=== PATIENT | female | born 2000 | race Hispanic/Latino ===

== ENCOUNTER 2021-06-23 22:53 | Emergency (ER) | payer OTHER ==
[~2021-06-23] VITALS: Ht 160 cm; Wt 86.2 kg
[2021-06-23] MEDS ORDERED: PREPLUS CA-FE1 EACH PO (23:13)
== END 2021-06-24 02:05 | disposition home or self-care (01) ==
LOC: ED 22:53
DX: O21.9 Vomiting of pregnancy, unspecified (principal); Z3A.09 9 weeks gestation of pregnancy; Z79.899 Other long term (current) drug therapy
CPT/HCPCS: 80053; 81001; 83735; 84703; 85025; 96374; 96375; 99284-25; J1200; J2405; J2550; J7030

== ENCOUNTER 2021-10-22 10:00 | Emergency (ER) | payer OTHER ==
[~2021-10-22] VITALS: Ht 160 cm; Wt 88.5 kg
[~2021-10-22 10:00] MED LIST: PREPLUS CA-FE1 EACH PO
== END 2021-10-22 12:04 | disposition home or self-care (01) ==
LOC: ED 10:00
DX: O98.512 Other viral diseases complicating pregnancy, second trimester (principal); U07.1 COVID-19; Z3A.27 27 weeks gestation of pregnancy; Z79.899 Other long term (current) drug therapy
CPT/HCPCS: 99284; C9803; U0003

== ENCOUNTER 2022-01-14 17:09 | Inpatient (IN) | payer OTHER ==
[~2022-01-14] VITALS: Ht 161.3 cm; Wt 89.8 kg
--- NOTE | 2022-01-14 23:05 | PR ---
[facility] [address] [facility] [place], [place] [address] Signed Progress Notes IP Datetime Report Generated by CPN: 01/14/2022 23:04 PROGRESS NOTES: [id number] Impression: Reassuring Heart Rate Plan: Continue Present Management; Augmentation VITAL SIGNS: [id number] EXAM: [id number] Dilatation: 2.0 Effacement: 75 Station: -3 Contractions: q2-5 min MEMBRANES: [id number] Nitrazine: Positive Amniotic Fluid Color: Clear Comments: Pt comfortable with epidural Minimal change since starting pitocin for augmentation of labor - continue, may consider internal monitors FETUS A: [id number] FHR Baseline: 135 Variability: Moderate 6-25bpm Accelerations: 15X15 FHR Category: Category I Presentation: Vertex Comments on Fetus A: No evidence of acidemia FETUS B: [id number] Signing Physician: Eros Treadwell DO Copies: ~ *Electronically Signed* 01/14/22 2304 EROS TREADWELL DO PATIENT NAME: MISTYNURIA VARGASE PROGRESS NOTE DATE OF : 01 PHYSICIAN: EROS TREADWELL DO [facility] #: [id number] REPORT IS CONFIDENTIAL AND NOT TO BE RELEASED WITHOUT AUTHORIZATION
--- NOTE | 2022-01-15 00:12 | PR ---
[facility] [address] [facility] [place], [place] [address] Signed Progress Notes IP Datetime Report Generated by CPN: 01/15/2022 00:12 PROGRESS NOTES: [id number] Impression: Normal Progression of Labor Procedures: Intrauterine Pressure Catheter; Scalp Electrode Plan: Continue Present Management; Augmentation VITAL SIGNS: [id number] EXAM: [id number] Dilatation: 2.0 Effacement: 75 Station: -2 Contractions: q2-5 min MEMBRANES: [id number] Nitrazine: Positive Membranes Status: Ruptured Amniotic Fluid Color: Clear Comments: Pt very comfortable with epidural. Risks, benefits, alternatives to IUPC/ FSE reviewed with pt. Internal monitors placed without difficulty with patient's consent. -Continue augmentation with pitocin FETUS A: [id number] FHR Baseline: 135 Variability: Moderate 6-25bpm Accelerations: 15X15 FHR Category: Category I Presentation: Vertex Comments on Fetus A: No evidence of acidemia FETUS B: [id number] Signing Physician: Eros Treadwell DO Copies: ~ *Electronically Signed* 01/15/22 001 EROS TREADWELL DO PATIENT NAME: NURIA JAY PROGRESS NOTE DATE OF : 01 PHYSICIAN: EROS TREADWELL DO RPT #: [id number] REPORT IS CONFIDENTIAL AND NOT TO BE RELEASED WITHOUT AUTHORIZATION
--- NOTE | 2022-01-15 01:46 | PR ---
[facility] [address] [place], [place] [address] Signed Progress Notes IP Datetime Report Generated by CPTin: 01/15/2022 01:46 PROGRESS NOTES: [id number] Impression: Arrest of Dilatation/Descent; Non-reassuring Heart Rate Procedures: Intrauterine Pressure Catheter; Scalp Electrode Plan: Continue Present Management; Augmentation VITAL SIGNS: [id number] EXAM: [id number] Dilatation: 3.0 Effacement: 80 Station: -3 Contractions: q2-5 min MEMBRANES: [id number] Nitrazine: Positive Membranes Status: Ruptured Amniotic Fluid Color: Clear Comments: Pitocin started 2029, cervix has progressed from 1 to 3cm. However, FHR is no longer reassuring and variable decelerations are persisting despite repeated position changes. Cervix is still far posterior. Pt strongly desired trying throne position again. Agreed to try, discussed that I am concerned about baby's intolerance to labor and possible need for delivery due to lack of cervical change in conjunction with category 2 strip. Pt strongly desires to continue toward vaginal delivery at this time, will reconsider after trying throne position. FETUS A: [id number] FHR Baseline: 135 Variability: Moderate 6-25bpm Accelerations: 15X15 FHR Category: Category I Presentation: Vertex Comments on Fetus A: No evidence of acidemia FETUS B: [id number] Signing Physician: Eros Treadwell DO Copies: ~ *Electronically Signed* 01/15/22 0146 EROS TREADWELL DO PATIENT NAME: NURIA JAY PROGRESS NOTE DATE OF : 01 PHYSICIAN: EROS TREADWELL DO RPT #: [id number] REPORT IS CONFIDENTIAL AND NOT TO BE RELEASED WITHOUT AUTHORIZATION
--- NOTE | 2022-01-15 02:28 | PR ---
[facility] [address] [place], [place] [address] Signed Progress Notes IP Datetime Report Generated by DEBORAH: 01/15/2022 02:28 PROGRESS NOTES: [id number] Impression: Arrest of Dilatation/Descent; Non-reassuring Heart Rate Procedures: Intrauterine Pressure Catheter; Scalp Electrode Plan: Deliver- Section Informed Consent Obtain: Section Delivery; Risks, Benefits and Alternatives Discussed VITAL SIGNS: [id number] EXAM: [id number] Dilatation: 3.0 Effacement: 80 Station: -3 Contractions: q2-5 min MEMBRANES: [id number] Nitrazine: Positive Membranes Status: Ruptured Amniotic Fluid Color: Clear Comments: Reviewed labor course thus far with pt, FOB, and pt's mother. Reviewed attempts to augment and stalled progression of cervical dilation and intolerance to labor. Risks, benefits, and alternatives including risks of bleeding/ infection/ repeat or referral for tolac, increased pain with plan for pain management discussed. Reviewed benefits of delivery prior to further stress to baby, and alternative of continuing labor attempts which I do NOT recommend at this point. Pt elects to proceed with PLTCS for nonreassuring heart tones/ intolerance of labor remote from delivery. Routine orders including Ancef 2g + Azithromycin 500mg placed, traffic maintenance supervisor and assist directly notified by phone. FETUS A: [id number] FHR Baseline: 135 Variability: Moderate 6-25bpm Accelerations: 15X15 FHR Category: Category I Presentation: Vertex Comments on Fetus A: No evidence of acidemia FETUS B: [id number] Signing Physician: Eros Treadwell DO *Electronically Signed* 01/15/22227 EROS TREADWELL DO PATIENT NAME: NURIA JAY PROGRESS NOTE DATE OF : 01 PHYSICIAN: EROS TREADWELL DO RPT #: [id number] REPORT IS CONFIDENTIAL AND NOT TO BE RELEASED WITHOUT AUTHORIZATION [address] [address] Signed Copies: ~ *Electronically Signed* 01/15/22227 EROS TREADWELL DO PATIENT NAME: NURIA JAY PROGRESS NOTE DATE OF : 01 PHYSICIAN: EROS TREADWELL DO RPT #: [id number] REPORT IS CONFIDENTIAL AND NOT TO BE RELEASED WITHOUT AUTHORIZATION
--- NOTE | 2022-01-15 04:17 | NUR ---
01/15/22 0417 Sabina Carr 0352 PATIENT ARRIVES TO PACU AWAKE BUT DROWSY. DENIES PAIN OR NAUSEA. RESTING WITH EYES CLOSED WHEN NOT STIMULATED. FAMILY AT BEDSIDE. BABY WITH FBC RN AT BEDSIDE. 0400 PATIENT STILL RESTING QUIETLY WITH EYES CLOSED. FBC RN WITH BABY TO RIGHT BREAST. RESP EVEN AND UNLABORED, ROOM AIR SATS 100%. 0410 PATIENT C/O NAUSEA, DRY HEAVING. MARYJO SEMICONDUCTOR PROCESSING TECHNICIAN STILL AT BEDSIDE. PATIENT ALSO CONTINUES TO BE HYPOTENSIVE. MARYJO SEMICONDUCTOR PROCESSING TECHNICIAN WILL MEDICATE FOR BP. 0415 PATIENT RESTING WITH EYES CLOSED. RESP EVEN AND UNLABORED, ROOM AIR SATS >97%. BABY WITH FBC RN BREAST FEEDING TO LEFT BREAST. FAMILY STILL AT BEDSIDE. PATIENT DENIES PAIN OR NAUSEA.
--- NOTE | 2022-01-16 09:12 | PR ---
[facility] [address] [place], [place] [address] Signed PP Progress Notes Datetime Report Generated by CPN: 01/16/2022 09:12 SUBJECTIVE: [id number] Pain: Within Normal Limits Nausea/Vomiting: Denies Flatus: Yes Bowel Movement: No Vital Signs: [id number] Vital Signs: Reviewed; Within Normal Limits EXAM: Ongoing Cardiovascular: Normal Respiratory: Normal Abdomen/Uterus: Normal Breasts: Normal Extremities: Normal Incision: Normal Progress: Normal Exam Comments: NAD, lying in bed RRR No dyspnea/ retractions Abd SNTND, FFBU Ext: 1+ BLLE, neg Josiah's BL IMPRESSION/PLAN/PROCEDURES: [id number] Impression: Normal Progression Plan: Continue Present Management Procedures: None Progress Notes: POD#1 s/p PLTCS for nonreassuring status -Pt seen and examined as above -Progressing well postop, Hgb 8 this am, discussed starting oral iron -Dizziness initially with first attempt at ambulating, no issue with further attempts -Awaiting spontaneous void Anticipate DC to home tomorrow vs Friday Continue routine postop care Signing Physician: Eros Treadwell DO Copies: *Electronically Signed* 01/16/22911 EROS TREADWELL DO PATIENT NAME: NURIA JAY PROGRESS NOTE DATE OF : 01 PHYSICIAN: EROS TREADWELL DO RPT #: [id number] REPORT IS CONFIDENTIAL AND NOT TO BE RELEASED WITHOUT AUTHORIZATION [facility] [address] [place] [address], [place] [address] Signed ~ *Electronically Signed* 01/16/22911 EROS TREADWELL DO PATIENT NAME: NURIA JAY PROGRESS NOTE DATE OF : 01 PHYSICIAN: EROS TREADWELL DO RPT #: [id number] REPORT IS CONFIDENTIAL AND NOT TO BE RELEASED WITHOUT AUTHORIZATION
--- NOTE | 2022-01-17 11:56 | PR ---
[facility] [address] [place], [place] [address] Signed PP Progress Notes Datetime Report Generated by CPTin: 01/17/2022 11:56 SUBJECTIVE: [id number] Pain: Within Normal Limits Nausea/Vomiting: Denies Flatus: Yes Bowel Movement: Yes Vital Signs: [id number] Vital Signs: Reviewed; Within Normal Limits EXAM: Ongoing Cardiovascular: Normal Respiratory: Normal Abdomen/Uterus: Normal Lochia: Normal Vulva/Perineum: Normal Breasts: Normal Extremities: Normal Incision: Normal Progress: Normal Exam Comments: NAD, sitting in bed RRR No dyspnea/ retractions Abd SNTND, FFBU Incision: c/d/i Ext: trace edema BL, neg Josiah's IMPRESSION/PLAN/PROCEDURES: [id number] Impression: Normal Progression Plan: Continue Present Management Procedures: None Progress Notes: POD#2 s/p PLTCS for NRFHT remote from delivery -pt seen and examined, as above, normal findings -considering DC to home today or tomorrow -ambulating, voiding, tolerating regular diet, +BM, tolerating oral iron -pain well-controlled on orals - well Anticipate DC to home today vs tomorrow Staple removal prior to discharge *Electronically Signed* 01/17/22 EROS GONZALEZ DO PATIENT NAME: NURIA JAY PROGRESS NOTE DATE OF : 01 PHYSICIAN: EROS TREADWELL DO RPT #: [id number] REPORT IS CONFIDENTIAL AND NOT TO BE RELEASED WITHOUT AUTHORIZATION [facility] [address] [place], [place] [address] Signed Signing Physician: Eros Treadwell DO Copies: ~ *Electronically Signed* 01/17/22 1156 EROS TREADWELL DO PATIENT NAME: NURIA JAY PROGRESS NOTE DATE OF : 01 PHYSICIAN: EROS TREADWELL DO RPT #: [id number] REPORT IS CONFIDENTIAL AND NOT TO BE RELEASED WITHOUT AUTHORIZATION
--- NOTE | 2022-01-17 15:56 | PATH ---
[facility] [address] [place], [place] [address] Signed SPECIMEN(S): A PLACENTA SPECIMEN SOURCE: A. PLACENTA CLINICAL HISTORY: NRFHT, short cord. G1, P1 FINAL PATHOLOGIC DIAGNOSIS: Placenta: - Martins placenta, 489 grams, see comment. - Umbilical cord: Short umbilical cord (12.5 cm in length). - membranes: Minimal focal acute chorionitis (maternal inflammatory response stage 1, grade 1). 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 COMMENT: The gestational age was not provided, therefore the appropriateness of placental weight cannot be determined. NAL:cml:C2NR MICROSCOPIC EXAMINATION: Histologic sections of all submitted blocks are examined by light microscopy. These findings, together with the gross examination, support the pathologic diagnosis. GROSS DESCRIPTION: The specimen, labeled "[place], placenta as per the requisition," is received fresh and placed in formalin and consists of martins discoid placenta with the following parameters: Umbilical cord: Insertion eccentric, 3.1 cm from the disc margin, measurement 12.5 cm in length by 1.0 cm in diameter; trivascular. Cord coiling index (per 10 cm): 4. Lesions: Not grossly identified. Membranes: Insertion site: Marginal, vera-pink and translucent, rupture site cannot be determined. Intact. Other: Not grossly identified. Chorionic Plate: Normal radiating vascular pattern, blue-purple and shiny. Lesions: Not grossly identified. Other: Not grossly identified. Maternal Surface: Normal cotyledons, intact. Lesions: Not grossly identified. Measurement: 17.1 x 15.2 x 2.2 cm. Weight (trimmed): 489 g PATIENT NAME: NURIA JAY PATHOLOGY DATE OF : 01 REPORT #: [id number] PHYSICIAN: [facility] PCP: EROS QUINTERO DO REPORT IS CONFIDENTIAL AND NOT TO BE RELEASED WITHOUT AUTHORIZATION [facility] [address] [place], [place] [address] Signed Cut Surface: Maroon and spongy. Lesions: Two ill-defined vera rubbery nodules, measuring up to 0.7 cm. The nodules comprise less than 5% of the maternal surface. Basal plate fibrin 0.1 cm in thickness. Other Findings: Not grossly identified. Cassette Summary: (A1) membranes and umbilical cord (A2) placenta parenchyma (A3) placenta parenchyma (A4) placenta parenchyma. KD (under the direct supervision of a pathologist) The Gross Description was prepared using a voice recognition system. The report was reviewed for accuracy; however, sound-alike word errors, addition and/or deletions may occur. If there is any question about this report, please contact Client Services. PERFORMING LABORATORY: The technical component was performed by [facility], [address] [place] [id number] (CLIA# [id number]). Professional interpretation was performed by [facility], [address] [address] (CLIA# [id number]). Diagnostician: Vivian Fletcher MD Pathologist Electronically Signed 01/17/2022 Copies: ~ PATIENT NAME: NURIA JAY PATHOLOGY DATE OF : 01 REPORT #: [id number] PHYSICIAN: [facility] PCP: EROS QUINTERO DO REPORT IS CONFIDENTIAL AND NOT TO BE RELEASED WITHOUT AUTHORIZATION
--- NOTE | 2022-01-25 17:10 | OR ---
[address] [place] [address] Signed DATE OF OPERATION: 01/15/2022 SURGEON: Eros Treadwell DO PROCEDURE: Electronically Signed By: EROS TREADWELL DO 01/25/22 1710 PATIENT NAME: NURIA JAY OPERATIVE REPORT DATE OF : 01 REPORT #: [id number] PHYSICIAN: EROS TREADWELL DO PCP: EROS TREADWELL DO REPORT IS CONFIDENTIAL AND NOT TO BE RELEASED WITHOUT AUTHORIZATION [address] [place], [place] [address] Signed Primary low transverse . STOCK DRIVER: Dr. Mehta. PREOPERATIVE DIAGNOSES: Term non-reassuring heart tones remote from delivery COVID in group B strep carrier POSTOPERATIVE DIAGNOSES: Term , delivered non-reassuring heart tones, remote from delivery. COVID in Group B strep positive Short cord. ANESTHESIA: Epidural. BLOOD LOSS: 550 mL. COMPLICATIONS: None. FINDINGS: Viable term female at 38 and 6 weeks gestation, weighing 7 pounds 8 ounces with Apgars of 6 and 8 at 1 and 5 minute respectively. Notably, short cord that was also hypocoiled, otherwise normal-appearing placenta, normal appearing bilateral tubes and ovaries. INDICATION: The patient was admitted to [facility] after prelabor rupture of membranes. Nitrazine was initially equivocal. AmniSure confirmed rupture of membranes. The patient was not napoleon with any discomfort or irregularity. She was started on low-dose Pitocin and rupture of residual bag was performed yielding a moderate amount of clear fluid. She then became more uncomfortable with contractions. Epidural was placed by Anesthesia and internal monitors were placed. She began having recurrent variable decelerations intermixed with occasional early and late deceleration. Numerous position changes were Electronically Signed By: EROS TREADWELL DO 01/25/22 1710 PATIENT NAME: NURIA JAY OPERATIVE REPORT DATE OF : 01 REPORT #: [id number] PHYSICIAN: EROS TREADWELL DO PCP: EROS TREADWELL DO REPORT IS CONFIDENTIAL AND NOT TO BE RELEASED WITHOUT AUTHORIZATION [address] [address] Signed attempted. The patient made no progression beyond 3 cm and ultimately she was consented for primary for non-reassuring heart tones remote from delivery. Risks, benefits, and alternatives were discussed and she elected to proceed. DESCRIPTION OF PROCEDURE: The patient was taken back to the operating room where she was given 2 g of Ancef and 500 mg of azithromycin. She was positioned in supine position with a leftward tilt. Edouard catheter was already in place and SCDs were placed and she was prepped and draped in a normal sterile fashion. A Pfannenstiel incision was made through the skin with a scalpel and carried down to the underlying layer of fascia with Bovie cautery, cauterizing perforating vessels as they were encountered. The fascia was incised in midline with the scalpel and then extended laterally with Dodd scissors. Inferior margin of fascia was grasped and elevated with Angela clamps. Underlying rectus muscles were dissected off bluntly and sharply with Dodd scissors, this was released. In a similar manner, superior margin of fascia was grasped and elevated with Angela clamps. Underlying rectus muscle was dissected off sharply and bluntly with Dodd scissors. Peritoneum was entered bluntly. Peritoneal incision was extended superiorly and inferiorly with lateral traction. Prince retractor was placed. Hysterotomy was made with a scalpel just above the vesicouterine reflection. Infant's head was easily elevated to the level of the hysterotomy and delivered through, followed by shoulders and remainder of body. Cord was doubly clamped and cut immediately and baby was handed off to waiting nursery team including Respiratory therapy. Segment of cord was collected for cord gases. Cord blood was collected for type and Oleg. Placenta was delivered manually. Uterus was cleared of clots and debris, and stay suture with 0 Monocryl was placed at the right apex. Hysterotomy was then closed in a double-layer closure, 1st with 0 Monocryl in a running locked manner, secondly with 0 Monocryl in an imbricating manner with excellent hemostasis noted. Pelvis was suction irrigated with warm sterile saline and again hemostasis was noted. Tubes and ovaries were inspected with normal findings as described above. Prince retractor was removed. Perineum was closed with 2-0 Vicryl in a running fashion. The rectus muscle was reapproximated at midline with 0 Vicryl in a simple interrupted fashion x2. Subcutaneous layer was inspected and suction irrigated with warm sterile saline. Perforating vessels were cauterized with Bovie cautery with excellent resulting hemostasis. The fascia was closed with two separate sutures, first working from right apex towards middle and secondly from left apex toward midline meeting at the middle. Subcutaneous layer was inspected and perforating vessels were cauterized with Bovie cautery. This was suction irrigated with warm sterile saline and reapproximated with 3-0 Vicryl in a Electronically Signed By: EROS TREADWELL DO 01/25/22 1710 PATIENT NAME: NURIA JAY OPERATIVE REPORT DATE OF : 01 REPORT #: [id number] PHYSICIAN: EROS TREADWELL DO PCP: EROS TREADWELL DO REPORT IS CONFIDENTIAL AND NOT TO BE RELEASED WITHOUT AUTHORIZATION [facility] [address] [place], [place] [address] Signed running fashion. The skin was closed with skin clips. Sponge and instrument counts were correct and uterus was Crede'd with minimal bleeding noted. The patient was then taken to recover in her labor room skin to skin with baby. DO LEONOR Loya/NICHELLEL /[id number] Copies: ~ Electronically Signed By: EROS TREADWELL DO 01/25/22 1710 PATIENT NAME: NURIA JAY OPERATIVE REPORT DATE OF : 01 REPORT #: [id number] PHYSICIAN: EROS TREADWELL DO PCP: EROS TREADWELL DO REPORT IS CONFIDENTIAL AND NOT TO BE RELEASED WITHOUT AUTHORIZATION
== END 2022-01-17 15:17 | disposition home or self-care (01) | DRG 787 ==
LOC: FBCO 17:09 → FBC 18:00
PROVIDERS: ADMIT Obstetrics & Gynecology; ATTEND Obstetrics & Gynecology
PROC: 10D00Z1 Extraction of Products of Conception, Low, Open Approach (ICD-10-PCS; principal; 2022-01-15 03:09)
DX: O99.02 Anemia complicating childbirth (principal); D62 Acute posthemorrhagic anemia; O99.824 Streptococcus B carrier state complicating childbirth; Z3A.38 38 weeks gestation of pregnancy; Z37.0 Single live birth; Z67.40 Type O blood, Rh positive
CPT/HCPCS: 01961; 36415; 59025; 82803; 84112; 85027; 86850; 86900; 86901; 88307; A9270; G0463; J0456; J0690; J1100; J1650; J1790; J1885; J2370; J2405; J2540; J2550; J2590; J2765; J2795; J3010; J7060; J7121

== ENCOUNTER 2024-12-15 07:13 | Day surgery (SDC) | payer OTHER ==
[2024-12-08 11:30] VITALS: BP 103/65
[~2024-12-15] VITALS: Ht 152.4 cm; Wt 92.7 kg
[~2024-12-15 07:13] MED LIST changes: +CEFAZOLIN SODIUM 2 GM/20 ML SYR IV SCH; +HEParin SOD (PORCINE) 5,000 UNIT/ML SDV SUB-Q SCH; +IBLOOD GLUCOSE TEST STRIP 1 EA TEST VI PRN; +LACTATED RINGER'S 1,000 ML IV SCH; +LIDOCAINE HCL 1% 5 ML SDV INJ ONE; +metroNIDAZOLE/SODIUM CHLORIDE 500 MG/100 ML PIGGYBACK IV SCH
[2024-12-15 07:30] VITALS: BP 109/53
[2024-12-15] MEDS ORDERED: BUPIVACAINE HCL 0.25% 50 ML MDV ONE (08:56)
[2024-12-15] MEDS ORDERED: iopamidoL 30 ML VIAL ONE (08:56)
[2024-12-15] MEDS ORDERED: SODIUM CHLORIDE 0.9% 40 ML IV ONE (08:57)
[2024-12-15] MEDS ORDERED: LIDOCAINE 1% W/ EPI 1:200,000 30 ML SDV ONE (08:57)
[2024-12-15] MEDS ORDERED: fentaNYL citrate 100 MCG/2 ML VIAL ONE (09:06)
[2024-12-15] MEDS ORDERED: dexmedeTOMIDine HCl 200 MCG/2 ML VIAL ONE (09:06)
[2024-12-15] MEDS ORDERED: propofoL 200 MG/20 ML VIAL ONE (09:06)
[2024-12-15] MEDS ORDERED: DEXAMETHASONE SOD PHOS 4 MG/ML VIAL ONE (09:06)
[2024-12-15] MEDS ORDERED: ACETAMINOPHEN 1,000 MG/100 ML VIAL ONE (09:06)
[2024-12-15] MEDS ORDERED: ondansetron HCL 4 MG/2 ML VIAL ONE (09:06)
[2024-12-15] MEDS ORDERED: ROCURONIUM BROMIDE 50 MG/5 ML SYR ONE (09:06)
[2024-12-15] MEDS ORDERED: MIDAZOLAM HCL 2 MG/2 ML VIAL ONE (09:06)
[2024-12-15] MEDS ORDERED: KETOROLAC TROMETHAMINE 30 MG/ML VIAL ONE (09:06)
[2024-12-15] MEDS ORDERED: SUCCINYLCHOLINE IN 0.9% NACL 200 MG/10 ML SYRINGE ONE (09:06)
[2024-12-15] MEDS ORDERED: SUGAMMADEX SODIUM 200 MG/2 ML ML ONE (09:06)
[2024-12-15] MEDS ORDERED: LIDOCAINE HCL 2% 20 MG/ML VIAL INJ ONE (09:06)
[2024-12-15] MEDS ORDERED: LIDOCAINE HCL 2% 5 ML SDV ONE (09:06)
[2024-12-15] MEDS ORDERED: HYDROmorphone HCL 1 MG/ML SYR IV PRN ×2 (10:00→10:45)
[2024-12-15] MEDS ORDERED: ondansetron HCL 4 MG/2 ML VIAL IV PRN ×2 (10:00→10:45)
[2024-12-15] MEDS ORDERED: NALOXONE HCL 0.4 MG SYR IV PRN ×2 (10:00→10:45)
[2024-12-15] MEDS ORDERED: PROCHLORPERAZINE EDISYLATE 10 MG/2 ML VIAL IV PRN ×2 (10:00→16:45)
[2024-12-15] MEDS ORDERED: fentaNYL citrate 50 MCG/ML SDV IV PRN (10:00)
[2024-12-15] MEDS ORDERED: IBLOOD GLUCOSE TEST STRIP 1 EA TEST VI PRN (10:00)
[2024-12-15] MEDS ORDERED: droPERidol 5 MG/2 ML VIAL IV PRN (10:00)
[2024-12-15] MEDS ORDERED: LACTATED RINGER'S 1,000 ML IV ONE (10:01)
[2024-12-15] MEDS ORDERED: OXYCODONE HCL 5 MG TAB PO PRN (11:00)
[2024-12-15 11:52] VITALS: BP 106/57
--- NOTE | 2024-12-15 11:59 | OR ---
[facility] [address], [place] [address] Signed DATE OF OPERATION: 12/15/2024 SURGEON: Preston Stein MD PREOPERATIVE DIAGNOSIS: Biliary colic with cholelithiasis. POSTOPERATIVE DIAGNOSES: 1. Biliary colic with cholelithiasis. 2. Cholesterolosis. PROCEDURE: Laparoscopic cholecystectomy with intraoperative cholangiogram. ESTIMATED BLOOD LOSS: None. FINDINGS: Intraoperative cholangiogram was unremarkable. Michael had two yellow cholesterol stones and significant cholesterolosis. INDICATIONS: Michael is a 24-year-old female, who has now had two children. She is having trouble with right upper quadrant abdominal pain for three or four years. She said the pain is getting more frequent. She has been to the emergency room at least twice. She stays home with her two children. Sometimes the pain is so bad she has trouble taking care of the children. Her liver function tests have been unremarkable. Her HIDA scan in 2021 showed her low ejection fraction at 13%. The ultrasound in October of this year confirmed a 1.5 cm stone. The gallbladder wall was only 3 mm. Abdalla sign was negative. Liver was unremarkable. She had another HIDA scan in November of this year and now the gallbladder ejection fraction was 0%. She was asked to see me as a local general surgeon. She is very familiar with the gallbladder at this point in time, having been online reading. She has also talked to various family members including her mother. I gave her our brochure on the gallbladder. We went through it page by page. She understands the location and function of the gallbladder. She understands cholelithiasis. We reviewed laparoscopic versus open cholecystectomy. She understands the possibility of ERCP is somewhere between 3% to 7% for patients with gallstones. She understands expected intraop and postop course. There is risk including, but not limited to bleeding, infection, scarring, change in contour of the skin, damage to bowel, damage to main bile duct, incisional hernias and other unforeseen comorbidities. Electronically Signed By: PRESTON STEIN MD 12/15/24 1159 PATIENT NAME: MICHAEL JAY OPERATIVE REPORT DATE OF : 01 REPORT #: [id number] PHYSICIAN: PRESTON STEIN MD PCP: GEETA PEARSON MD REPORT IS CONFIDENTIAL AND NOT TO BE RELEASED WITHOUT AUTHORIZATION [address] [address] Signed She had expressed understanding and wished to proceed. DESCRIPTION OF PROCEDURE: I met with Michael and her mother in our preop area. Her mom had been to gallbladder surgery as well. After this, we took Michael into the operating room and placed in the supine position. She was placed under general endotracheal tube anesthesia. She was given preoperative antibiotics along with subcutaneous heparin. SCDs were utilized. She was prepped and draped in the usual sterile fashion. All trocars were placed in their usual positions under direct visualization of camera without difficulty. We had taken pictures throughout for photodocumentation. The gallbladder was grasped and elevated in the right upper quadrant. The triangle of Calot was dissected out with [place] dissectors. The intraoperative cholangiocatheter was inserted into the cystic duct. The intraoperative cholangiogram was unremarkable. We saw no filling defects and the contrast flowed nicely into the duodenum. The cystic duct stump was secured with a PDS Endoloop and two clips were placed across the cystic duct stump to marquis its location. We placed two clips on the cystic artery and one up close to the gallbladder. The cystic artery was sharply divided. The gallbladder was then slowly and carefully removed from the gallbladder fossa with the help of the cautery and placed into an EndoCatch bag. We used our laparoscopic suturing device to pass 0-Vicryl suture on either side of the fascia subxiphoid trocar site. This was tied down to close the fascia primarily. After this, all the gas was allowed to escape and all trocars were removed. The fascia of the supraumbilical trocar site was closed with interrupted simple and [id number] 0-Vicryl sutures. The gallbladder was passed off to our circulating nurse for photodocumentation. We injected local anesthetic into all trocar sites. Each trocar site was irrigated and suctioned out until clear. The skin and dermis of each trocar site were closed with interrupted 3-0 subcuticular Monocryl sutures. Dry gauze and tape were applied to all incisions. Michael was then awakened from anesthesia, extubated in the OR, and taken to the recovery room in stable condition. Preston Stein MD [facility] /[id number] cc: [facility] Electronically Signed By: PRESTON STEIN MD 12/15/24 1159 PATIENT NAME: MICHAEL JAY OPERATIVE REPORT DATE OF : 01 REPORT #: [id number] PHYSICIAN: PRESTON STEIN MD PCP: GEETA PEARSON MD REPORT IS CONFIDENTIAL AND NOT TO BE RELEASED WITHOUT AUTHORIZATION [facility] [address] [place], [place] [address] Signed Preston Stein MD Patient Chart Copies: PRESTON STEIN MD ~ Electronically Signed By: PRESTON STEIN MD 12/15/24 1159 PATIENT NAME: MICHAEL JAY OPERATIVE REPORT DATE OF : 01 REPORT #: [id number] PHYSICIAN: PRESTON STEIN MD PCP: GEETA PEARSON MD REPORT IS CONFIDENTIAL AND NOT TO BE RELEASED WITHOUT AUTHORIZATION
[2024-12-15 12:55] VITALS: BP 102/49
--- NOTE | 2024-12-15 13:07 | NUR ---
1235: CHECKED PATIENT. PATIENT SLEEPING. DID NOT DISTURB. MOM AT BEDSIDE. CALL LIGHT WITHIN REACH. 1255: PATIENT AWAKENED FOR VS CHECK. RATES PAIN 9/10 IN BACK. ABDOMINAL DRESSINGS WITH SMALL AMOUNT OF RED DRAINAGE. VS CHECKED. PATIENT REPOSITIONED TO HER BACK RAISED HOB A SMALL AMOUNT. EDUCATED PATIENT TO WAIT A BIT LONGER FOR PAIN PILLS TO PROVIDE RELIEF. IV SITE WNL. SCDs ON. MOM AT BEDSIDE. CALL LIGHT WITHIN REACH.
--- NOTE | 2024-12-15 13:20 | NUR ---
LATE ENTRY: 1155: PATIENT BACK IN DAY SURGERY ROOM FROM PACU. RATES PAIN 8/10 IN BACK. PATIENT EDUCATED THAT THIS PAIN COULD BE REFERRED PAIN FROM GASES USED TO FILL ABDOMEN DURING SURGERY. VS CHECKED. ABDOMINAL DRESSINGS WITH SMALL AMOUNT OF RED DRAINAGE. ICE PACK TO ABDOMEN. IV SITE WNL. SCDs ON. MOM JOINED PATIENT IN HER ROOM. CALL LIGHT WITHIN REACH. 1200: ICE WATER PLACED AT BEDSIDE. PATIENT GIVEN BITES OF PUDDING. PATIENT THEN MEDICATED FOR PAIN WITH 10 MG OF OXYCODONE.
--- NOTE | 2024-12-15 13:48 | NUR ---
LUBNA 1340: PT IS REPORTING 10/10 PAIN. THE PAIN IS UP UNDERNEATHE HER BREAST AND RADIATING UP INTO HER SHOULDER. SHE IS EDUCATED THAT THIS IS GAS PAIN, THE BEST WAY TO RELIEVE IT IS TO BLECH OR PASS GAS, OR SHE CAN GET UP AND MOVE AROUND. SHE IS OFFERED A CARBONATED BEVERAGE TO HELP PRODUCE BELCHES. SHE REPORTS BEING HUNGRY, A SANDWICH IS ORDERED FOR HER.
[2024-12-15] MEDS ORDERED: SIMETHICONE 80 MG CHEW PO ONE (14:15)
[2024-12-15 14:17] VITALS: BP 108/54
--- NOTE | 2024-12-15 14:20 | NUR ---
LE 1415: PT HAS A BOUT OF EMESIS, A SMALL AMOUNT. SHE REPORTS HER PAIN IS STILL A 10/10. SHE IS GIVEN IV ZOFRAN AND SIMETHICONE. SHE HAS A SANDWICH AT THE BEDSIDE. CALL LIGHT WITHIN REACH. MOM AT THE BEDSIDE. NO ADDITIONAL NEEDS AT THIS TIME.
--- NOTE | 2024-12-15 14:37 | NUR ---
LE 1425: PT IS ASSISTED UP OOB TO THE BATHROOM WITH STAND BY ASSIST. SHE IS ABLE TO VOID 400MLS OF DARK URINE. SHE REPORTS SHE IS STILL A 10/10 PAIN, BUT THE GAS PAIN SEEMS TO HAVE GONE AWAY AND FEELS BETTER, SAME WITH THE NAUSEA. LE 1435: PT IS GIVEN A FRESH ICE PACK AND CRACKERS.
[2024-12-15] MEDS ORDERED: SEVOFLURANE 250 ML BTL INH ONE (15:01)
--- NOTE | 2024-12-15 15:11 | NUR ---
12/15/24 1511 Lisette Cancino 1044- PT ARRIVES TO PACU, SEMI HERNANDEZ POSITION. OPA IN PLACE, BREATHING EVEN AND NON LABORED. O2 AT 6L PER MASK, LR INFUSING TO LF IV. ABD SOFT, NON DISTENDED, BANDAGES IN PLACE, ICE PACK PLACED TO ABD. ALL MONITORS APPLIED. 1053- PT REACTS TO VERBAL STIMULI AND FOLLOWS COMMANDS TO REMOVE OPA. O2 LEFT IN PLACE, PT SAYS A FEW WORDS BUT UNABLE TO UNDERSTAND. 1057- PT MOVED TO ROOM AIR AT THIS TIME. PT STATES "I DON'T FEEL GOOD". CLARIFIED IF THIS MEANT NAUSEA OR PAIN. PT REPORTS PAIN. REORIENTED PT TO TIME AND PLACE. PT UNABLE TO QUANTIFY PAIN AND JUST POINTS TO RUQ. 1102- PT REPORTS PAIN GOING TO BACK AND 9/10. PT MEDICATED WITH FENTANYL AT THIS TIME. 1108- PT CONTINUES TO C/O PAIN AND NO CHANGE WITH FENTANYL, 2ND DOSE GIVEN AT THIS TIME. WILL CONTINUE TO MONITOR. 1112- PT GIVEN PILLOW TO SPLINT ABD AND HOB ELEVATED SOME TO CHANGE POSITION AND POTENTIALLY HELP WITH PAIN. 1118- PT CONTINUES TO REPORT PAIN, TEARFUL AND MOANING. PT HAS RAPID BREATHING, BUT FEELS LIKE SHE CAN'T BREATH. ENCOURAGED TO TAKE SLOW DEEP BREATHS AND REASSURED HER BREATHING IS EFFECTIVE. PT MEDICATED DILAUDID AT THIS TIME. 1120- PT APPEARS TO BE MORE COMFORTABLE AND HAS FALL ASLEEP. 1125- PT WAKES AND REPORTS PAIN IS STILL UNBEARABLE AND ASKING FOR HELP. ASSISTED PT TO CHANGE POSITION TO LEFT SIDE, WARM BLANKET TO BACK. EDUCATED AND DISCUSSED THE AIR IN THE ABD AFTER SURGERY AND THE ASSOCIATED PAIN. THIS PAIN SEEMS TO BE RELATED TO THE AIR IT COMES AND GOES AND PAIN MEDICATION IS NOT RELIEVING PAIN. 1134- PT MEDICATED WITH 2ND DOSE OF DILAUDID AT THIS TIME RATING PAIN 9/10. 1136- PT RESTING AT THIS TIME, WILL CONTINUE TO MONITOR. 1144- WOKE PT, PT REPORTS PAIN IS 6/10 AND GIVES A THUMBS UP. PT REPORTS THAT PAIN IS TOLERABLE. EXPLAINED TO PT THAT A PAIN PILL WILL LAST LONGER AND CAN BE GIVEN ONCE SHE EATS SOMETHING. PT AGREEABLE TO PLAN. 1150- PT TAKEN TO ROOM 4 IN DAY SURGERY, REPORT TO JOSE PECK. LR TKO TO [facility]. PT DROWSY BUT WAKES AND ANSWERS QUESTIONS. CARE OF PT TURNED OVER AT THIS TIME.
[2024-12-15 16:15] VITALS: BP 112/57
--- NOTE | 2024-12-15 16:16 | NUR ---
PT IS REPORTING IMPROVEMENT IN HER PAIN. SHE STATES SHE GETS NAUSEATED ANY TIME SHE TRIES TO EAT ANYTHING. SHE IS TOLERATING WATER AND CRACKERS. SHE INDICATES THAT SHE FEELS SAFE TO GO HOME. SHE WANTS SOMETHING FOR NASUEA TO BE SENT TO THE PHARMACY.
--- NOTE | 2024-12-15 16:29 | NUR ---
LUBNA 1619: DR. STEIN IS CALLED AND VERBAL ORDER RECEIVED FOR COMPAZINE 5MG 1 TAB BY MOUTH EVERY 6 HOURS NEEDED FOR N/V QTY 10 NO REFILLS. ORDER CALLED INTO PT'S PHARMACY AT 1620. LUBNA 1630: PT IS EDUCATED ON HOW TO BEST DRESS HERSELF AND TO OPEN HER CURTAIN WHEN READY.
--- NOTE | 2024-12-15 16:35 | NUR ---
LE 163: TEENA PECK REPORTS THAT PT HAS STARTED VOMITING. LE 163: DR. STEIN IS CALLED, VERBAL ORDER FOR COMPAZINE RECEIVED.
[2024-12-15] MEDS ORDERED: PROCHLORPERAZINE MALEATE 10 MG TAB PO PRN (17:00)
[2024-12-15] MEDS ORDERED: PROCHLORPERAZINE MALEATE 5 MG TAB PO PRN (17:00)
[2024-12-15 17:14] VITALS: BP 124/74
--- NOTE | 2024-12-15 17:41 | NUR ---
1653- NAUSEA MEDICATION GIVEN SEE EMAR. 1724- DC INSTRUCTIONS GONE OVER AND PRESCRIPTION GIVEN WITH EDUCATION. PT AND MOTHER OF PT DENIES QUESTIONS OR CONCERNS. PT WAS ABLE TO DRESS WITH THE ASSISTANCE OF THE MOTHER. IV REMOVED. PT VSS. PT REPORTS GAS PAIN AT A 9/10. PT ENCOURAGED TO WALK TO HELP WITH THE PAIN. PT ALSO REPORTS NAUSEA. PT IS PROVIDED EMESIS BAG. PT IS EDUCATED ON PAIN MEDICATION AND SIDE EFFECTS. PT IS ABLE TO TRANSFER HERSELF TO THE WHEELCHAIR INDEPENDENTLY. PT HAS ALL BELONGINGS. PT DC FROM DAY SURGERY VIA WHEELCHAIR TO FAMILY CAR.
--- NOTE | 2024-12-17 14:38 | PATH ---
[facility] [address], [place] [address] Signed SPECIMEN(S): A GALLBLADDER AND STONES SPECIMEN SOURCE: A. GALLBLADDER AND STONES CLINICAL HISTORY: Calculus of gallbladder FINAL PATHOLOGIC DIAGNOSIS: Gallbladder, cholecystectomy: - Chronic calculous cholecystitis BRP MICROSCOPIC EXAMINATION: Histologic sections of all submitted blocks are examined by light microscopy. These findings, together with the gross examination, support the pathologic diagnosis. GROSS DESCRIPTION: The specimen, labeled and designated "[place], gallbladder and stones," is received in formalin and consists of Specimen: Previously incised gallbladder. Dimensions: 7.8 x 3.6 x 2.5 cm. Serosa: Begum-green and smooth. Cystic Duct: Unobstructed. Calculi: Two yellow bosselated choleliths up to 2.0 cm in greatest dimension. Mucosa: Begum and velvety with diffuse yellow stippling. Wall thickness: 0.1 cm. Lymph node: No pericystic lymph nodes are grossly identified. Additional: None. Process Coordinator sections are submitted in (A1). TO (under the direct supervision of a pathologist) The Gross Description was prepared using a voice recognition system. The report was reviewed for accuracy; however, sound-alike word errors, addition and/or deletions may occur. If there is any question about this report, please contact Client Services. ADDITIONAL NOTES: Immunohistochemical and/or in situ hybridization studies if performed in this case included appropriate positive controls that reacted as expected. This test was developed and its performance PATIENT NAME: NURIA JAY PATHOLOGY DATE OF : 01 REPORT #: [id number] PHYSICIAN: RIVER TAVERAS PCP: GEETA PEARSON MD REPORT IS CONFIDENTIAL AND NOT TO BE RELEASED WITHOUT AUTHORIZATION [facility] [address] [place] [id number] Signed characteristics determined by [facility]. It has not been cleared or approved by the U.S. Food and Drug Administration. The FDA has determined that such clearance or approval is not necessary. This test is used for clinical purposes. It should not be regarded as investigational or for research. [facility] is certified under the Clinical Laboratory Improvement Amendments of 1988 (CLIA) as qualified to perform high complexity clinical laboratory testing. PERFORMING LABORATORY: Technical preparation was performed by [facility], [address] [place], [place] [address] [address] (CLIA#: [id number]). Professional interpretation was performed by [facility], [address] [place] [address] (CLIA#: [id number]). Diagnostician: Erickson Mendoza MD Pathologist Electronically Signed 12/17/2024 Copies: ~ PATIENT NAME: NURIA JAY PATHOLOGY DATE OF : 01 REPORT #: [id number] PHYSICIAN: RIVER PATHOLOGY PCP: GEETA PEARSON MD REPORT IS CONFIDENTIAL AND NOT TO BE RELEASED WITHOUT AUTHORIZATION
== END 2024-12-15 17:24 | disposition home or self-care (01) ==
LOC: DS 07:13
PROVIDERS: ATTEND Colon & Rectal Surgery
PROC: 0FT44ZZ Resection of Gallbladder, Percutaneous Endoscopic Approach (ICD-10-PCS; principal; 2024-12-15 09:50)
DX: K80.10 Calculus of gallbladder with chronic cholecystitis without obstruction (principal); E66.9 Obesity, unspecified
CPT/HCPCS: 00790; 74300; 88304; A9270; J0131; J0330; J0690; J1100; J1171; J1644; J1885; J2003; J2250; J2405; J2704; J3010; J3490; J7121; Q9967